=== PATIENT | female | born 1960 | race Caucasian/White ===

== ENCOUNTER 2019-12-17 11:12 | Emergency (ER) | payer OTHER ==
--- NOTE | 2019-12-17 11:33 | ER Document Report ---
ED Medical Screen (RME) - General Chief Complaint: Near Syncope Stated Complaint: FEELING FAINT/SHORTNESS OF BREATH Time Seen by Provider: 12/17/19 11:30 Notes: HPI: 59-year-old female presenting to the emergency department complaining of sudden onset of dizziness and feeling off balance while driving her vehicle today. No unilateral weakness no slurred speech. No headache. Patient states symptoms lasted approximately half an hour. No chest pain sensation of irregularity of her heartbeat. indicates that patient's heartbeat did seem to be going fairly quickly. Patient apparently had an episode similar to this 3 weeks ago. She states she did not eat today but does not have hypoglycemia normally. No abdominal pain nausea vomiting. Patient states that she still feels "shaky". I have greeted and performed a rapid initial assessment of this patient. A comprehensive ED assessment and evaluation of the patient, analysis of test results and completion of the medical decision making process will be conducted by additional ED providers PHYSICAL EXAMINATION: GENERAL: Well-appearing, well-nourished and in mild acute distress. HEAD: Atraumatic, normocephalic. EYES: sclera anicteric, conjunctiva are normal. ENT: Moist mucous membranes. NECK: Normal range of motion LUNGS: Normal work of breathing, clear to auscultation HEART: 2+ radial pulses bilaterally, regular rate and rhythm ABD: limited by positioning for exam in triage. EXTREMITIES: no pitting or edema. No cyanosis. NEUROLOGICAL: No focal neurological deficits. Moves all extremities spontaneously and on command. Gait is normal. No unilateral deficits noticed, no slurred speech, no facial droop PSYCH: Anxious mood, normal affect. SKIN: Warm, Dry, normal turgor, no rashes or lesions noted. TRAVEL OUTSIDE OF THE [place] IN LAST 30 DAYS: No - Related Data Allergies/Adverse Reactions: No Known Allergies Allergy (Unverified 12/17/19 11:23) Home Medications: Levothyroxine, Potassium Chloride Physical Exam - Vital signs Vitals: Temp Pulse Resp BP Pulse Ox 97.8 F 96 20 166/79 H 98 12/17/19 11:16 12/17/19 11:16 12/17/19 11:16 12/17/19 11:16 12/17/19 11:16 Course - Vital Signs Vital signs: Temp Pulse Resp BP Pulse Ox 97.8 F 96 20 166/79 H 98 12/17/19 11:16 12/17/19 11:16 12/17/19 11:16 12/17/19 11:16 12/17/19 11:16
[2019-12-17 12:00] LABS: ABSOLUTE BASOPHILS # (AUTO) 0.1 10^3/uL (0.0-0.2); ABSOLUTE MONOCYTES (AUTO) 0.3 10^3/uL (0.1-1.4); ABSOLUTE NEUT (AUTO) 4.9 10^3/uL (1.7-8.2); BASOPHILS % (AUTO) 0.8 % (0-2); EOSINOPHILS % (AUTO) 0.3 % (0-6); HEMATOCRIT 43.1 % (36.0-47.0); HEMOGLOBIN 15.7 g/dL (12.0-15.5); MEAN CORPUSCULAR HGB CONC 36.3 g/dL (32.0-36.0); MEAN CORPUSCULAR VOLUME 94 fl (80-97); MONOCYTES % (AUTO) 5.3 % (3-13); PLATELET COUNT 266 10^3/uL (150-450); RED CELL DISTRIBUTION WIDTH 12.2 % (11.5-14.0); SEGMENTED NEUTROPHILS % (AUTO) 77.6 % (42-78); TOTAL CELLS COUNTED % (AUTO) 100 %; WHITE BLOOD COUNT 6.4 10^3/uL (4.0-10.5)
--- NOTE | 2019-12-17 12:05 | RADIOLOGY REPORT (SQ) ---
EXAM DESCRIPTION: CT HEAD WITHOUT COMPLETED DATE/TIME: 12/17/2019 11:47 am REASON FOR STUDY: acute dizziness COMPARISON: None. TECHNIQUE: Axial images acquired through the brain without intravenous contrast. Images reviewed wi th bone, brain and subdural windows. Additional sagittal and coronal reconstructions were generated. Images stored on PACS. All CT scanners at this facility use dose modulation, iterative reconstruction, and/or weight based d osing when appropriate to reduce radiation dose to as low as reasonably achievable (ALARA). [facility]: Dose Right [facility]: CareDose [facility]: Dose Right [facility]: Teradose 4D [facility]: Aspire Bariatrics RADIATION DOSE: CT Rad equipment meets quality standard of care and radiation dose reduction techniq ues were employed. CTDIvol: 53.2 mGy. DLP: 937 mGy-cm. mGy. LIMITATIONS: None. FINDINGS: VENTRICLES: Normal size and contour for patient age. CEREBRUM: No masses. No hemorrhage. No midline shift. No evidence for acute infarction. Normal gra y/white matter differentiation. No areas of low density in the white matter. CEREBELLUM: No masses. No hemorrhage. No alteration of density. No evidence for acute infarction. EXTRAAXIAL SPACES: No fluid collections. No masses. ORBITS AND GLOBE: No intra- or extraconal masses. Normal contour of globe without masses. CALVARIUM: No fracture. PARANASAL SINUSES: No fluid or mucosal thickening. SOFT TISSUES: No mass or hematoma. OTHER: No other significant finding. IMPRESSION: NO ACUTE INTRACRANIAL IMAGING FINDINGS. EVIDENCE OF ACUTE STROKE: NO. COMMENT: Quality ID # [id number]: Final reports with documentation of one or more dose reduction techniques (e.g., Automated exposure control, adjustment of the mA and/or kV according to patient size, use of iterative reconstruction technique) TECHNICAL DOCUMENTATION: JOB ID: [id number] 2010 [employer]- All Rights Reserved Reading location - IP/workstation name: [email or web address]
--- NOTE | 2019-12-17 12:06 | RADIOLOGY REPORT (SQ) ---
EXAM DESCRIPTION: CHEST 2 VIEWS COMPLETED DATE/TIME: 12/17/2019 11:53 am REASON FOR STUDY: dizziness COMPARISON: None. EXAM PARAMETERS: NUMBER OF VIEWS: two views TECHNIQUE: Digital Frontal and Lateral radiographic views of the chest acquired. RADIATION DOSE: NA LIMITATIONS: none FINDINGS: LUNGS AND PLEURA: Emphysematous change with hyperinflation, increased AP diameter and flat tening of the hemidiaphragms. No focal airspace disease, pleural effusion or pneumothorax. MEDIASTINUM AND HILAR STRUCTURES: No masses or contour abnormalities. HEART AND VASCULAR STRUCTURES: Normal heart size. No evidence of failure. BONES: No acute findings. HARDWARE: None in the chest. OTHER: No other significant finding. IMPRESSION: Emphysematous change without evidence of acute cardiopulmonary process. TECHNICAL DOCUMENTATION: JOB ID: [id number] 2010 [employer]- All Rights Reserved Reading location - IP/workstation name: [email or web address]
[2019-12-17 12:22] LABS: ALBUMIN 4.8 g/dL (3.5-5.0); ALKALINE PHOSPHATASE 84 U/L (38-126); ANION GAP 16 (5-19); ASPARTATE AMINO TRANSFERASE 37 U/L (14-36); BILIRUBIN,DIRECT 0.3 mg/dL (0.0-0.4); BILIRUBIN,TOTAL 0.7 mg/dL (0.2-1.3); BLOOD UREA NITROGEN 7 mg/dL (7-20); CALCIUM 9.7 mg/dL (8.4-10.2); CARBON DIOXIDE 23 mmol/L (22-30); CHLORIDE 97 mmol/L (98-107); GLUCOSE 108 mg/dL (75-110); POTASSIUM 3.7 mmol/L (3.6-5.0); TOTAL PROTEIN 8.4 g/dL (6.3-8.2)
--- NOTE | 2019-12-17 14:25 | ER Document Report ---
Entered by TIARA CROWLEY SCRIBE 12/17/19 1204 Acting as scribe for:SERENE MCLAIN MD ED General - General Chief Complaint: Near Syncope Stated Complaint: FEELING FAINT/SHORTNESS OF BREATH Time Seen by Provider: 12/17/19 11:30 Primary Care Provider: VANDANA AUGUSTINE MD [Primary Care Provider] - Follow up as needed Mode of Arrival: Ambulatory Information source: Patient Notes: This 59-year-old female patient presents to the emergency department today with complaints of a possible panic attack prior to arrival. The patient and her were just leaving town to head to [place] to see their new grandchild. states they were traveling in separate vehicles and the patient called him to tell him that she felt "faint, dizzy, and like she was going to pass out". states when he got to the patient she looked like she was having a panic attack. states she has had multiple panic attacks in the past and they presented similar to this. Patient states she has not had anything to eat today and she does not know if this could be related. Patient denies any chest pain or shortness of breath. TRAVEL OUTSIDE OF THE [place] IN LAST 30 DAYS: No - Related Data Allergies/Adverse Reactions: No Known Allergies Allergy (Unverified 12/17/19 11:23) Home Medications: Levothyroxine, Potassium Chloride Past Medical History - General Information source: Patient - Social History Smoking Status: Unknown if Ever Smoked Cigarette use (# per day): No Frequency of alcohol use: None Drug Abuse: None Lives with: Family Family History: Reviewed & Not Pertinent Patient has suicidal ideation: No Patient has homicidal ideation: No Psychiatric Medical History: Reports: Hx Anxiety Review of Systems - Review of Systems Constitutional: See HPI EENT: No symptoms reported Cardiovascular: denies: Chest pain Respiratory: denies: Short of breath Gastrointestinal: No symptoms reported Genitourinary: No symptoms reported Female Genitourinary: No symptoms reported Musculoskeletal: No symptoms reported Skin: No symptoms reported Hematologic/Lymphatic: No symptoms reported Neurological/Psychological: See HPI, Anxiety -: Yes All other systems reviewed and negative Physical Exam - Vital signs Vitals: Temp Pulse Resp BP Pulse Ox 97.8 F 96 20 166/79 H 98 12/17/19 11:16 12/17/19 11:16 12/17/19 11:16 12/17/19 11:16 12/17/19 11:16 - Notes Notes: Physical Exam: General: Alert, appears well. HEENT: Normocephalic. Atraumatic. PERRL. Extraocular movements intact. Oropharynx clear. Neck: Supple. Non-tender. Respiratory: No respiratory distress. Clear and equal breath sounds bilaterally. Cardiovascular: Regular rate and rhythm. Abdominal: Normal Inspection. Non-tender. No distension. Normal Bowel Sounds. Back: No gross abnormalities. Extremities: Moves all four extremities. Upper extremities: Normal inspection. Normal ROM. Lower extremities: Normal inspection. No edema. Normal ROM. Neurological: Normal cognition. AAOx4. Normal speech. Cranial nerves II through XII grossly intact bilaterally. No pronator drift. [id number] test intact. Heel king test intact. Psychological: appears anxious Skin: Warm. Dry. Normal color. Course - Re-evaluation Re-evalutation: 12/17/19 14:19 Patient resting comfortably not showing any signs of distress at this time. Patient is calm relaxed blood pressure and pulse within normal range. No evidence for any acute neurological event. - Vital Signs Vital signs: Temp Pulse Resp BP Pulse Ox 97.8 F 96 20 166/79 H 98 12/17/19 11:16 12/17/19 11:16 12/17/19 11:16 12/17/19 11:16 12/17/19 12:52 - Laboratory Result Diagrams: 12/17/19 11:35 12/17/19 11:35 Laboratory results interpreted by me: 12/17/19 12/17/19 12/17/19 11:35 11:35 11:35 Hgb 15.7 H MCH 34.0 H MCHC 36.3 H Sodium 136.2 L Chloride 97 L POC Glucose 113 H AST 37 H Total Protein 8.4 H 12/17/19 14:20 Laboratory results within normal limits not showing any acute process at this time. - Diagnostic Test Radiology reviewed: Image reviewed, Reports reviewed Radiology results interpreted by me: 12/17/19 14:21 CT scan of head did not show any acute process. Chest x-ray shows some emphysematous changes in chest lung markings otherwise no acute process. - EKG Interpretation by Me Additional EKG results interpreted by me: 12/17/19 14:21 CT twelve-lead EKG 12/17/2019 1207 shows normal sinus rhythm rate of 79 consider posterior infarct otherwise no acute process. Discharge - Discharge Clinical Impression: Panic attack due to exceptional stress Condition: Stable Disposition: HOME, SELF-CARE Additional Instructions: Panic Attack The cause of panic attacks is unknown. Symptoms can include chest pain, shortness of breath, palpitations, sweats, and a sense of smothering or impending doom. In time, the panic attacks can lead to generalized anxiety and phobias. Because the symptoms can mimic heart attack, pulmonary embolism, and other serious diseases, the physician has evaluated you for these conditions. There is no evidence of a serious problem. An acute panic attack usually goes away by itself without treatment. A severe attack can be treated with medicine to calm you. Long-term, antide pressant medicines may help prevent attacks. Counselling can also be very beneficial in dealing with panic attacks. Panic attacks are less likely if you are getting regular exercise, proper diet, and plenty of sleep. It's normal for panic attacks to cause many frightening symptoms. However, you should call or return if your symptoms change significantly or if you are worsening. Forms: Elevated Blood Pressure Referrals: VANDANA AUGUSTINE MD [Primary Care Provider] - Follow up as needed I personally performed the services described in the documentation, reviewed and edited the documentation which was dictated to the scribe in my presence, and it accurately records my words and actions.
[2019-12-17 14:54] VITALS: BP 120/63
--- NOTE | 2019-12-17 18:02 | EKG REPORT ---
SEVERITY:- ABNORMAL ECG - SINUS RHYTHM NONSPECIFIC INFERIOR ST CHANGES : Confirmed by: Shun Padilla MD 17-Dec-2019 18:01:46
== END 2019-12-17 14:54 | disposition home or self-care (01) ==
LOC: ER 11:12
DX: F41.0 Panic disorder [episodic paroxysmal anxiety] (principal); R55 Syncope and collapse; R06.02 Shortness of breath; R42 Dizziness and giddiness; Z79.899 Other long term (current) drug therapy
CPT/HCPCS: 36415; 70450; 71046; 80053; 82962; 84484; 85025; 93005; 93010; 99284